=== PATIENT | female | born 1985 | race Caucasian/White ===

== ENCOUNTER 2024-03-21 07:19 | Outpatient (CLI) | payer OTHER | END 2024-03-21 11:56 | disposition home or self-care (01) | LOC: RAD 07:19 | DX: R10.9 Unspecified abdominal pain (principal); R10.2 Pelvic and perineal pain; M54.40 Lumbago with sciatica, unspecified side; M25.511 Pain in right shoulder ==

== ENCOUNTER 2025-07-17 08:36 | Outpatient (CLI) | payer OTHER | END 2025-07-17 09:41 | disposition home or self-care (01) | LOC: MAMO-SONO 08:36 | PROVIDERS: ATTEND General Practice | DX: N64.9 Disorder of breast, unspecified (principal); Z00.01 Encounter for general adult medical examination with abnormal findings; Z68.20 Body mass index [BMI] 20.0-20.9, adult; Z68.1 Body mass index [BMI] 19.9 or less, adult; R10.9 Unspecified abdominal pain; R10.20 Pelvic and perineal pain unspecified side; M25.811 Other specified joint disorders, right shoulder; N20.0 Calculus of kidney ==